=== PATIENT | female | born 2000 | race Caucasian/White ===

== ENCOUNTER → 2024-10-19 | Outpatient (CLI) | payer OTHER, SELFPAY | END | disposition home or self-care (01) | LOC: LABSPEC 11:42 | PROVIDERS: Referring Provider Nurse Practitioner Family; Visit Provider Nurse Practitioner Family | DX: Z12.4 Encounter for screening for malignant neoplasm of cervix (principal) | CPT/HCPCS: 88175; G0145 ==

== ENCOUNTER → 2024-10-25 | Outpatient (CLI) | payer OTHER, SELFPAY ==
--- NOTE | 2024-10-25 13:12 | US_ITS ---
PROCEDURE: THYROID 10/25/2024 REASON FOR EXAM: CONCERN FOR ENLARGED THYROID TECHNIQUE: THYROID COMPARISON: None FINDINGS: Right thyroid lobe size: 4.7 cm x 1.2 cm 1.7 cm Left thyroid lobe size: 4.7 cm 1.5 cm 1.3 cm Isthmus: 0.28 cm Background parenchymal echotexture is homogeneous. Nodules: . Lobe: Right, Location: Superior pole, Size: 0.3 cm x 0.2 cm x 0.1 cm. Cm, Stability: N/A Composition: Solid or almost completely solid (+2) Echogenicity: Hypoechoic (+2) Margin: Smooth (+0) Shape: Wider than tall (+0) Echogenic Foci: None (+0) TI-RADS: 4 . Lobe: Right, Location: Midpole, Size: 0.3 cm x 0.3 cm x 0.2 cm cm, Stability: N/A Composition: Solid or almost completely solid (+2) Echogenicity: Hypoechoic (+2) Margin: Smooth (+0) Shape: Wider than tall (+0) Echogenic Foci: None (+0) TI-RADS: 4 US/Thyroid IMPRESSION: Subcentimeter hypoechoic nodules in the right lobe. Flow month follow-up recom mended. RECOMMENDATION: Based on most suspicious nodule. Nodule size = largest diameter Only evaluate nodule if =>5 mm. Growth > 20% in 2 dimensions = worsening. Follow up to 4 nodules. Recommend biopsy for no more than 2 nodules. Reading Location: [place] [id number]
== END | disposition home or self-care (01) ==
LOC: US 13:11
PROVIDERS: Referring Provider Nurse Practitioner Family; Visit Provider Nurse Practitioner Family
DX: E04.9 Nontoxic goiter, unspecified (principal)
CPT/HCPCS: 76536

== ENCOUNTER 2024-11-21 18:59 | Emergency (ER) | payer OTHER, SELFPAY ==
[2024-11-21 19:00] VITALS: BP 126/74; PULSE 53; RESP 16; TEMP 37.3; O2SAT 100; BMI 24.2
--- NOTE | 2024-11-21 21:25 | EX.ED.GENINJ ---
HPI History of Present Illness Chief Complaint: Laceration Narrative Narrative: Patient is a 23-year-old female with no known significant past medical history who presents to the emergency department chief complaint of lip laceration. Patient dates around 5 PM this evening she went to get her bag and she notes that she ran into a locker hitting her face/lip on the walker. States that she not passed out. She states that she wants the laceration repaired here in the emergency department. Patient states that she is unsure when her last tetanus shot was. [facility] Medical History Scoliosis Home Medications ?Medication ?Instructions ?Recorded ?Last Taken ?Type metronidazole 0.75 % topical cream 1 applic topical QDAY 10/17/24 Unknown History (MetroCream) Allergy/AdvReac Type Severity Reaction Status Date / Time No Known Allergies Allergy Unverified 10/19/24 09:28 Family History Grandfather Cancer Diabetes Myocardial infarction Heart disease Hypertension High cholesterol Melanoma CVA (cerebral vascular accident) Grandmother Breast cancer Heart disease Hypertension High cholesterol Melanoma CVA (cerebral vascular accident) Father Hormone deficiency Seizures Mother Anxiety Depression Hormone deficiency Aunt Breast cancer Diabetes Ovarian cancer Surgical History [place] teeth removed Social History adopted: No household members: none number of children: 0 current occupational status: employed current occupation: [employer] sexually active: No Smoking Status: Never smoker alcohol intake: current alcohol intake frequency: holidays/special occasions only substance use type: does not use caffeine: Yes Type: coffee eating out: 1-3 times/week during the past year weight has: remained stable what type of physical activity do you participate in: none roderick/alevism: Anglican seatbelt use: always do you feel safe at home: Yes additional social history: Single ROS ROS ED ROS Narrative Neurological: Denies numbness, wheeze, tingling Skin: Complains of left lip laceration EXAM Physical Exam Narrative Exam Narrative: General: Patient lying in bed rest comfortably did not appear to be in acute distress Head: Atraumatic, normocephalic Eyes: PERRL bilaterally, EOMI bilaterally, no conjunctival injection noted Neck: Soft, supple, trachea midline Cardiovascular: Patient bradycardic Extremities: +5/5 strength noted in the bilateral upper and lower extremities Neurological: Patient followed commands and that she was at [facility] year is 2024 Skin: Patient has approximately 1-1/2 to 2 cm laceration above her left lip no active bleeding noted Const Vital Signs: 11/21/24 19:00 Temperature 99.2 F H Temperature Source Oral Pulse Rate 53 L Respiratory Rate 16 Blood Pressure 126/74 H Blood Pressure Mean 91 Pulse Ox 100 Oxygen Delivery Method Room Air MDM MDM MDM Narrative Medical decision making narrative: Patient is a 23-year-old female who presents to the emergency department the chief complaint of lip laceration. Patient does have a lip laceration noted does not cross the vermilion border. Patient's tetanus shot will be updated. Patient was advised to have the sutures removed in approximately 3 to 5 days see procedure note for separate details. She is advised to watch out for signs infection. She is agreeable this plan all question concerns answered she was discharged home in stable condition. Procedure note Procedure name: Laceration repair Indication: Reduce risk of infection Location: 2 cm laceration to left lip does not cross vermilion border no active bleeding noted Preprocedure diagnosis: Laceration Postprocedure diagnosis: Repaired laceration Informed consent was obtained prior to procedure started. Procedure: The appropriate timeout was taken. The area was prepped and draped in usual sterile fashion. Local anesthesia was achieved using 2 cc of lidocaine 1% without epinephrine. Wound was copiously irrigated. 3 6-0 Ethilon interrupted sutures were placed. Estimated blood loss was less than 0.5 mL. Dressing was applied to the area and anticipatory guidance, as well as standard postprocedure care was explained. Return precautions are given. Patient tolerated procedure well without any complications. Follow-up visit for suture removal and evaluation of laceration. Discharge Plan Triage Chief Complaint: Laceration ED Provider: Rai Galdamez Dx/Rx/DC Orders Clinical Impression: Laceration of lip, Hx of scoliosis Prescriptions: No Action metronidazole [MetroCream] 0.75 % cream 1 applic topical QDAY Primary Care Provider: Care Physician,No Primary Referrals: Care Physician,No Primary [Primary Care Provider] - Activity Restrictions/Additional Instructions: Have your doctor remove your stitches in approximately 3 to 5 days. Watch out for signs of infection. Do not soak these stitches. Return with worsening symptoms or other concerns Print Language: Citizen [place] Disposition Disposition: Home, Self Care
[2024-11-21] MEDS: Lidocaine 1% (20 ml mdv) 20 ML Vial 10 ML INFILT (21:49)
[2024-11-21 22:38] VITALS: BP 122/77; PULSE 16; RESP 98; TEMP 36.7; O2SAT 100
== END 2024-11-21 22:42 | disposition home or self-care (01) ==
PROVIDERS: Emergency Provider Emergency Medicine; Visit Provider Emergency Medicine
DX: S01.511A Laceration without foreign body of lip, initial encounter (principal); W22.09XA Striking against other stationary object, initial encounter; Z23 Encounter for immunization
CPT/HCPCS: 12011; 90471; 90715; 99283

== ENCOUNTER → 2024-11-29 | Outpatient (CLI) | payer OTHER, SELFPAY ==
[2024-11-29 10:44] LABS: Free T3 3.3 pg/mL (2.18-3.98)
== END | disposition home or self-care (01) ==
LOC: MTLAB 08:57
PROVIDERS: Referring Provider Surgery; Visit Provider Surgery
DX: E04.1 Nontoxic single thyroid nodule (principal)
CPT/HCPCS: 36415; 84439; 84443; 84481